=== PATIENT | female | born 1965 | race Caucasian/White ===

== ENCOUNTER 2019-05-27 12:32 | Emergency (ER) | payer MEDICAID ==
[~2019-05-27] VITALS: Ht 134.6 cm; Wt 90.0 kg
[2019-05-27] MEDS ORDERED: INSU100I3 SQ (13:06)
[2019-05-27] MEDS ORDERED: LISI-662 PO (13:06)
[2019-05-27] MEDS ORDERED: METF-960 PO (13:06)
[2019-05-27 13:15] LABS: GLUCOSE,POINT OF CARE 235 MG/DL (70-110)
[2019-05-27] MEDS ORDERED: KETOROLAC TROMETHAMINE 30 MG/ML VIAL IVP ONE (14:30)
[2019-05-27] MEDS ORDERED: SODIUM CHLORIDE 0.9% 1,000 ML IV ONE (14:30)
[2019-05-27] MEDS ORDERED: DiphenhydrAMINE HCL 50 MG/ML VIAL IVP ONE (14:30)
[2019-05-27] MEDS ORDERED: METOCLOPRAMIDE HCL 5 MG/ML 2 ML VIAL IVP ONE (14:30)
[2019-05-27 15:51] LABS: BASOPHILS % (AUTO) 0.4 % (0.0-2.0); EOSINOPHILS % (AUTO) 0.7 % (1.0-6.0); HEMATOCRIT 50.1 % (36-46); HEMOGLOBIN 16.6 g/dL (12.0-16.0); LYMPHOCYTES # (AUTO) 1.9 K/uL (1.0-4.8); MEAN CORPUSCULAR HEMOGLOBIN 29.5 pg (26.0-34.0); MEAN CORPUSCULAR HGB CONC 33.1 G/dL (31.0-37.0); MEAN CORPUSCULAR VOLUME 89 fL (80-100); MONOCYTES # (AUTO) 0.3 K/uL (0.1-1.0); MONOCYTES % (AUTO) 3.9 % (2.0-9.0); NEUTROPHILS # (AUTO) 4.7 K/uL (1.8-7.7); PLATELET COUNT (AUTO) 217 K/uL (150-450); RED BLOOD CELL COUNT(AUTO) 5.62 MIL/uL (4.00-5.20); RED CELL DISTRIBUTION WIDTH 13.2 % (11.5-14.5)
[2019-05-27 16:09] LABS: ANION GAP 10 mmol/L (8-16); CALCIUM, TOTAL 10.2 mg/dL (8.8-10.5); CARBON DIOXIDE 28 mmol/L (22-29); CHLORIDE 99 mmol/L (98-107); CREATININE 0.77 mg/dL (0.60-1.30); GLOMERULAR FILTR. RATE CALC > 60 mL/min (>60); GLUCOSE,RANDOM 202 mg/dL (70-110); POTASSIUM 3.6 mmol/L (3.5-5.1); SODIUM SERUM 137 mmol/L (136-145); UREA NITROGEN, BLOOD 13 mg/dL (7-18)
[2019-05-27 16:15] LABS: ALANINE AMINOTRANSFERASE 77 U/L (12-78); ALBUMIN 3.9 g/dL (3.4-5.0); ALKALINE PHOSPHATASE 110 U/L (46-116); ASPARTATE AMINOTRANSFERASE 27 U/L (15-37); BILIRUBIN,TOTAL 0.4 mg/dL (0.1-1.0)
[2019-05-27] MEDS ORDERED: ACETAMINOPHEN 1000 MG/ISO-OSM 100 ML IV ONE (17:15)
[2019-05-27 18:04] VITALS: BP 130/68
== END 2019-05-27 18:57 | disposition home or self-care (01) ==
LOC: EMS 12:34
DX: R11.2 Nausea with vomiting, unspecified (principal); R51 Headache; R19.7 Diarrhea, unspecified; I10 Essential (primary) hypertension; E11.9 Type 2 diabetes mellitus without complications; F41.9 Anxiety disorder, unspecified; E78.00 Pure hypercholesterolemia, unspecified; Z79.84 Long term (current) use of oral hypoglycemic drugs; Z79.4 Long term (current) use of insulin; Z79.899 Other long term (current) drug therapy
CPT/HCPCS: 36415; 70450; 80053; 82962; 85025; 96361; 96365; 96375; 99284; J0131; J1200; J1885; J2765; J7030

== ENCOUNTER 2021-10-20 21:03 | Emergency (ER) | payer MEDICAID, OTHER ==
[~2021-10-20] VITALS: Ht 144.8 cm; Wt 104.5 kg
[~2021-10-20 21:03] MED LIST: INSU100I3 SQ; LISI-894 PO; METF-1211 PO
[2021-10-20] MEDS: PredniSONE 20 MG TABLET PO ONE (23:17)
[2021-10-20] MEDS: FAMOTIDINE 20 MG TABLET PO ONE (23:17)
[2021-10-20] MEDS: DiphenhydrAMINE HCL 50 MG CAPSULE PO ONE (23:17)
[2021-10-21 00:45] VITALS: BP 125/73
== END 2021-10-21 00:59 | disposition home or self-care (01) ==
LOC: EMS 21:04
DX: R21 Rash and other nonspecific skin eruption (principal); T36.0X5A Adverse effect of penicillins, initial encounter; I10 Essential (primary) hypertension; E11.9 Type 2 diabetes mellitus without complications; E78.00 Pure hypercholesterolemia, unspecified; F41.9 Anxiety disorder, unspecified; Z79.899 Other long term (current) drug therapy; Y92.89 Other specified places as the place of occurrence of the external cause
CPT/HCPCS: 82962; 99284; J7512